=== PATIENT | female | born 1965 | race Caucasian/White ===

== ENCOUNTER 2017-11-25 05:51 | Day surgery (SDC) | payer BC ==
[2017-11-25] MEDS ORDERED: Lactated Ringers 1,000 ML IV SCH (06:30)
[2017-11-25] MEDS ORDERED: Versed 2 MG/2 ML Injection ONE (06:31)
[2017-11-25] MEDS: Versed 2 MG/2 ML Injection IV PRN ×2 (06:45→07:00)
[2017-11-25] MEDS ORDERED: APRESOLINE 20 MG/ML INJ IV ONE ×2 (07:30→08:15)
[2017-11-25] MEDS ORDERED: Lactated Ringers 1,000 ML IV ONE (08:11)
[2017-11-25 09:21] LABS: Basophil (Absolute #) 0.07 (0-0.4); Eosinophil % 5.5 % (0.00-5.0); Eosinophil (Absolute #) 0.39 (0-0.5); Granulocyte Absolute (ANC) 4.78 (1.4-6.9); Granulocytes % 67.1 % (36.0-66.0); Hemoglobin 8.8 gm/dl (12.0-16.0); Lymphocyte (Absolute #) 1.42 (1.0-4.6); Lymphocytes % 19.9 % (24.0-44.0); Mean Cell Volume 86.2 fl (78-100); Mean Corpuscular Hgb Concent. 31.4 g/dl (32-36); Mean Platelet Volume 9.7 fl (6-9.5); Monocyte (Absolute #) 0.46 (0.0-1.3); Monocytes % 6.5 % (0.0-12.0); Platelet Count 348 K/mm3 (150-450); Red Blood Count 3.25 M/mm3 (4.1-5.4); White Blood Count 7.1 K/mm3 (4.0-10.5)
--- NOTE | 2017-11-25 10:10 | XRAY ---
Indication: Hypertension. Two-dimensional renal sonogram performed. Comparison: None Both kidneys normal in reniform shape with normal color perfusion. Right kidney measures 10.5 x 4.0 x 4.2 cm and left measures 11.9 x 4.6 x 3.9 cm. 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 Right kidney demonstrates a 2 cm upper pole cyst. No solid renal mass, hydronephrosis, or perinephric fluid. Cortical medullary differentiation preserved without cortical thinning. Images of the urinary bladder unremarkable. Bladder volume is 535 cc. Impression: Bilateral renal cysts. Remaining renal sonogram negative.
[2017-11-25 10:15] LABS: ALBUMIN 3.7 g/dL (3.5-5.0); ANION GAP 16.3 MEQ/L (5-15); BILIRUBIN,TOTAL 0.5 mg/dL (0.2-1.3); Calcium 9.8 mg/dL (8.4-10.2); Creatinine 1 1.31 mg/dL (0.52-1.04); Potassium 3.6 mmol/L (3.5-5.1); Total Protein 6.8 g/dL (6.3-8.2)
[2017-11-25 10:48] VITALS: BP 161/87; PULSE 77; O2SAT 98
--- NOTE | 2017-12-01 14:25 | ECHO ---
Transthoracic echocardiographic examination and color Doppler was done on 11/24/2017. INDICATION: Hypertension. IMPRESSION: 1) NO REGIONAL WALL MOTION ABNORMALITY. ESTIMATED GLOBAL LEFT VENTRICULAR EJECTION FRACTION BETWEEN 50 AND 60%. 2) MODERATE MITRAL REGURGITATION. 3) MODERATE TRICUSPID REGURGITATION. RIGHT VENTRICULAR SYSTOLIC PRESSURE OF 52 MM OF MERCURY. 4) SCLEROTIC AORTIC VALVE WITH A PEAK TRANSAORTIC GRADIENT OF 12 MM OF MERCURY. 5) LEFT VENTRICULAR HYPERTROPHY. 6) LEFT ATRIAL ENLARGEMENT. 7) LEFT VENTRICULAR DIASTOLIC DYSFUNCTION. 8) SMALL PERICARDIAL EFFUSION. The left ventricle is visualized and demonstrated adequate motion of all the segments. Estimated global left ventricular ejection fraction between 50 to 60%. There is moderate left ventricular hypertrophy. The mitral valve is seen and this opens adequately somewhat sclerotic especially the posterior leaflets. There is moderate mitral regurgitation. Left atrium is enlarged. The tissue Doppler study of the lateral mitral annulus is suggestive of left ventricular diastolic dysfunction. The aortic valve is sclerotic with a peak gradient across the aortic valve of 12 mm of Mercury. The right side chambers are normal. There is normal right ventricular contractility. There is moderate tricuspid regurgitation. The right ventricular systolic pressure of 52 mm of Mercury suggestive of moderate pulmonary hypertension. There is also small pericardial effusion.
== END 2017-11-25 11:00 | disposition home or self-care (01) ==
LOC: SDC 05:51
PROVIDERS: ATTEND Family Medicine
DX: I10 Essential (primary) hypertension (principal); Z91.19 Patient's noncompliance with other medical treatment and regimen; Z53.09 Procedure and treatment not carried out because of other contraindication
CPT/HCPCS: 36415; 76770; 80053; 85025; 93306; J0360; J2250

== ENCOUNTER 2018-01-06 05:56 | Day surgery (SDC) | payer BC ==
[2018-01-06] MEDS ORDERED: Ketamine HCl 50 MG/ML IV ONE (05:57)
[2018-01-06] MEDS ORDERED: DIPRIVAN 200 MG/20 ML IV ONE (05:57)
[2018-01-06] MEDS ORDERED: Lactated Ringers 1,000 ML IV SCH (06:30)
[2018-01-06 09:02] VITALS: BP 159/79; PULSE 55; O2SAT 96
--- NOTE | 2018-01-06 10:12 | OP ---
SURGERY DATE/TIME: 01/06/2018 0725 PREOPERATIVE DIAGNOSIS: Anemia. POSTOPERATIVE DIAGNOSES: 1) Gastric ulcer along the lesser curvature of the stomach. 2) Normal colon. PROCEDURES: 1) Esophagogastroduodenoscopy with biopsy. 2) Colonoscopy. SURGEON: Dr. Carney. ANESTHESIA: Medications were given by the anesthesia department. BRIEF HISTORY: The patient is a 52 year old white female who presents now for endoscopic evaluation due to the presence of anemia. The patient was felt to need to have endoscopic evaluation. She was appraised of the risks of the procedure including the risk of perforation, phlebitis, untoward reaction to medication, bleeding and missed lesions. The patient verbalized her understanding and desired to have the procedure performed. DESCRIPTION OF PROCEDURE: The patient was given the medications by the anesthesia department. She had continuous pulse oximetry, ECG monitoring, intermittent blood pressure monitoring and tidal CO2 monitoring during the examination. She was placed in the left lateral decubitus position. A bite block was placed and the flexible Olympus gastroscope was used to intubate the oropharynx. A view of the larynx was obtained and was normal. The scope was easily introduced in the esophagus which appeared to be normal throughout its length. The stomach was entered. The gastric lancaster was suctioned dry and the stomach re-insufflated. The scope was passed along the greater curvature of the stomach. We noticed that the angular area of the lesser curvature a benign appearing gastric ulcer with no stigmata of recent bleeding. There was also noted smaller ulceration near this same area. The pylorus is encountered and intubated. Duodenum inspected and found to be somewhat erythematous and edematous but no erosions or ulcerations were noted. The scope is withdrawn towards the stomach. A retroflex view was obtained of the lesser curvature, fundus and cardia regions of the stomach and these areas appeared to be normal. The scope was then directed towards the gastric ulcer and biopsies were obtained from the edge of the ulcer. There was one firm area towards the middle portion of the stomach otherwise more of a fluffy soft nature to the biopsies that we obtained. The scope was removed from the patient. Next, a digital rectal examination performed and revealed normal anal sphincter tone and no masses. The flexible Olympus pediatric colonoscope was used to intubate the rectum. A view of the colon was developed sequentially to the cecum. Upon insertion and withdrawal, including a retroflex view in the rectum, no mucosal lesions were encountered. The scope was removed from the patient who tolerated the procedure well and was sent back to OP recovery in good condition. The prep was noted to be fair with some amounts of semi-solid stool obscuring areas of the colon. The patient is taken to the recovery room in good condition.
== END 2018-01-06 08:50 | disposition home or self-care (01) ==
LOC: SDC 05:56
PROVIDERS: ATTEND Family Medicine
DX: K25.9 Gastric ulcer, unspecified as acute or chronic, without hemorrhage or perforation (principal); D50.9 Iron deficiency anemia, unspecified; Z85.3 Personal history of malignant neoplasm of breast; I10 Essential (primary) hypertension
CPT/HCPCS: 88305; 88312; J2704